=== PATIENT | female | born 1965 | race African-American/Black ===

== ENCOUNTER → 2017-10-21 | Outpatient (CLI) | payer OTHER, MEDICAID ==
[~2017-10-21] MED LIST: BAYER CHEWABLE81 MG PO; BYSTOLIC20 MG PO; DOXEPIN 10 MG C10 M1 PO; FLEXERIL PO; HYDROCODON-ACE1 EAC5 PO; KEPPRA 500 MG500 M1 PO; LISINOPRIL20 MG PO
--- NOTE | 2017-11-19 08:28 | PAINCON ---
[address] [address] PAIN MANAGEMENT CONSULTATION Name: RAMOSJOE Room: [facility]#: [id number] Admission: 10/21/17 Attend Phys: Chloé Swan MD Discharge: Date of : 67 Report #: [id number] THIS REPORT FOR: //name// CC: Kareem Swan DATE OF SERVICE: 10/30/2017 CHIEF COMPLAINT: "Aching and shooting pain down in my leg, since 2007." FOLLOWUP HISTORY: The patient is a 52-year-old female who has been referred to the pain clinic for evaluation. The patient states that she has had some problems with her leg since 2007. 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 It was noted that she had some swelling in her knee. She was later evaluated and found to have infection in her knee. She was treated for cellulitis. This involves her left leg. First noted in June 2008. Since that time, she has had pain and discomfort and problems with the leg. She has had cellulitis on a number of occasions. She finds that medications are difficult to tolerate. She does note some increased sensitivity in her left leg. She has difficulty with light touch as well as traditional irritation of her leg. She feels frustrated. She describes her pain as a 10/10. She has used Richmond 10/325 and Flexeril 10 mg t.i.d. She describes her discomfort as continuous, steady, constant, burning, shooting, aching, throbbing, sharp, stabbing and tender. At this juncture, there is no significant change in the hair pattern of the left versus the right. The has very little hair on her leg. It is not sure if she notices a significant change in color one side versus the other, but has noted on occasions what feels like some swelling involving the left foot and ankle area. She finds that light touch is uncomfortable and would often sleep without covers/blankets on her leg. It is irritated by the light pressure. The patient has been walking with a limp because of the pain and discomfort. ALLERGIES: SULFA. CURRENT MEDICATIONS: Lisinopril 20 mg daily, Mary aspirin 81 mg, Bystolic 10 mg, Keppra 1000 mg t.i.d., Richmond 10/325 mg 4-5 times daily, and Flexeril 10 mg 1 to 3 tablets daily. PAST MEDICAL HISTORY: Hypertension, seizure activity, and chronic regional pain syndrome involving the left leg. PAST SURGICAL HISTORY: Hysterectomy, tubes have been tight bilateral tubal ligation, tonsillectomy, and knee surgery on the left x 2. FAMILY HISTORY: Mother with diabetes, heart disease[place] [address] PAIN MANAGEMENT CONSULTATION Name: JOE BEASLEY Domo Room: [facility]#: [id number] Admission: 10/21/17 Attend Phys: Chloé Swan MD Discharge: Date of : 67 Report #: [id number] Father had heart attack. Mother is alive. Father is . REVIEW OF SYSTEMS: Questionnaire 14 points indicate decreased appetite, fatigue, weakness, wears glasses, convulsion/seizures, head injury, memory loss, confusion, depression, insomnia, excessive thirst, heat intolerance, and slow to heal. PHYSICAL EXAMINATION: GENERAL: The patient is a well-developed black female, appears her stated age. Alert and oriented x 3. Affect appear normal. Speech is fluent. HEENT: Normocephalic, atraumatic. Extraocular eye muscles intact. Hearing normal. Sclerae nonicteric. No nasal congestion. Moist buccal membranes. NECK: Clear to auscultation. No bruits or adenopathy. EXTREMITIES: Upper muscle strength is judged to be 5/5. Deep tendon reflexes are +2 or +1 for the biceps bilaterally. Difficult to appreciate, triceps and brachioradialis. Admissions Advisor strength 5/5. Sensation within normal limits. ABDOMEN: Nontender. MUSCULOSKELETAL: Normal, without lordosis, scoliosis, or kyphosis. Low back pain and discomfort in the left sciatic outflow tract. Right sciatic outflow tract unremarkable. The patient complains of pain and discomfort to light touch in the anterior portion of her leg and down into the mid calf. She notes some discomfort in the posterior L5-S1 distribution of her left leg. Complains of some stabbing sensation in the dorsum and lateral portion of her foot. Forward bending to 70 degrees. Left and right lateral bending lumbar extension were not very problematic. The patient complains of pain and discomfort with dorsiflexion of her foot. No significant swelling as compared to the contralateral side is noted. No significant color change as compared to the contralateral side is noted. No change in sweating left versus right is noted. The patient does complain of hyperesthesia on the left side as well as allodynia. Walks with an antalgic gait. ASSESSMENT: 1. Complex regional pain syndrome involving the left lower extremity. 2. Essential hypertension. 3. History of convulsions. 4. History of cellulitis in the lower extremity. RECOMMENDATIONS: We discussed treatment options with the patient. We explained the phenomena of chronic regional pain syndrome and its modalities as well as the pathophysiology in layman's terms. We have explained to the patient that sometimes these pain syndromes are maintained by sympathetic mechanism. Sometime resetting the sympathetic nervous system using a lumbar sympathetic block could be efficacious. As we discussed the options, which included lumbar sympathetic block as well as an epidural injection. The patient declined that option [place] [address] PAIN MANAGEMENT CONSULTATION Name: RAMOSJOE [facility] [id number] Admission: 10/21/17 Attend Phys: Chloé Swan MD Discharge: Date of : 67 Report #: [id number] explained that this could be helpful with pain since that pain that she is experiencing. At this juncture, she still declined the injection. We will give her the opportunity to think about this. If she chooses and returns, we could pursue it and note its efficacy. We would like to thank you for letting us participate in her care. We hope she continues to improve. <ELECTRONICALLY SIGNED> By: Chloé Swan MD 11/19/17 0828 [id number]. Edgardo Swan MD /nt
== END ==
LOC: M.PC 05:22
DX: G90.522 Complex regional pain syndrome I of left lower limb (principal); I10 Essential (primary) hypertension; Z90.710 Acquired absence of both cervix and uterus; Z98.890 Other specified postprocedural states

== ENCOUNTER → 2018-05-14 | Outpatient (CLI) | payer OTHER, MEDICAID ==
--- NOTE | 2018-05-22 17:38 | PAINCON ---
[facility] [address] [place] [address] PAIN MANAGEMENT CONSULTATION Name: JOE BEASLEY Room: [facility]#: [id number] Admission: 05/14/18 Attend Phys: Chloé Swan MD Discharge: Date of : 67 Report #: [id number] THIS REPORT FOR: //name// CC: Kareem Swan DATE OF SERVICE: 05/14/2018 FOLLOWUP HISTORY: The patient is a 53-year-old black female who has been followed in the pain clinic. She has pain and discomfort involving her low back area. She has had some problems with her lower extremities. She has been suffering from chronic pain. It involves cellulitis in her lower extremities. She states that the cellulitis waxes and wanes. At this juncture, it has returned. It involves both of her feet. They are quite tender to touch. The patient notes some swelling in this area. She has been placed on antibiotics. Feels states her feet continue to feel quite painful. She has been using hydrocodone 10 mg b.i.d. as well as Flexeril. Over the last month, she has noticed that the pain started and still has remained problematic. She has had this problem since 2007. She is still remains quite frustrated. Unable to be gainfully employed because of this. Still finds that light touch is uncomfortable. Sleep without covers over her legs. Irritated by light pressure. The patient continues to walk with limp and a very antalgic gait. ALLERGIES: SULFA. CURRENT MEDICATIONS: Lisinopril 20 mg, Mary Aspirin 81 mg, Bystolic 10 mg, Keppra 1000 mg t.i.d., Boaz 10/325 q.4-5h. times daily and Flexeril 10 mg 1 p.o. t.i.d. The patient medicines used in the past, Elavil caused bad dreams elevated heart rate. The patient states that she would like to use Cymbalta, but her insurance company would not pay for. Lyrica did not provide significant benefit per her report. PAIN CLINIC ASSESSMENT: 1. The patient is not to being treated for osteoarthritis or rheumatoid arthritis. 2. Height 5 feet 5 inches, weight 136 pounds, BMI is 22.8. 3. Vital signs: Blood pressure 127/78, heart rate 94, respiratory rate 16, room air saturation is 96, respiratory rate 16, temperature 98.2. 4. Pain scale 10/10. 5. Fall risk. The patient has not fallen in the last 3 months. 6. Blood thinner. The patient is not on a blood thinning medication. 7. Hypertension. The patient is not being treated for hypertension. 8. Opioid therapy. The patient is receiving opioid therapy. 9. [place] [address] PAIN MANAGEMENT CONSULTATION Name: JOE BEASLEY Domo Room: [facility]#: [id number] Admission: 05/14/18 Attend Phys: Chloé Swan MD Discharge: Date of : 67 Report #: [id number] 10. Functional assessment tool. 11. Recreational drug use. The patient denies use of recreational drugs. 12. Tobacco: The patient does smoke. 13. Alcohol: The patient denies use of alcoholic beverages. PHYSICAL EXAMINATION: GENERAL: The patient is a well-developed, well-nourished black female. Appears her stated age. She is alert and oriented x 3. Her affect appears appropriate. Speech is fluent. HEENT: Normocephalic, atraumatic. Extraocular eye muscles intact. Sclerae nonicteric. Mucous membranes are moist. LUNGS: Clear to auscultation. NECK: Without adenopathy or bruits. Upper extremity muscle strength is judged to be 5/5 for the major muscle groups. ABDOMEN: Nontender. MUSCULOSKELETAL: Without scoliosis, kyphosis or lordosis. The patient does walk with a forward lean. Walks with a very antalgic gait from side to side. There is swelling in the lower extremity. There is some discoloration of her feet. She has on flip flops use. Complains of some discomfort in the L4-L5 distribution down her leg. Positive straight leg raising, left. The patient does have hyperesthesia on the left side as well as allodynia. ASSESSMENT: 1. Complex regional pain syndrome involving the lower extremity. 2. Assist control hypertension. 3. History of convulsions/grand mal seizures. 2. History of cellulitis of lower extremity with recurrence at this juncture. RECOMMENDATIONS: We discussed treatment options with the patient. At this juncture, we will continue with her current medical regimen. A script for hydrocodone 10/325 one p.o. b.i.d. has been written. The patient will try doxepin 10 mg at bedtime. Hopefully, this would be helpful with sleep as well as help with the pain without the side effects of Elavil, which caused elevated heart rate and nightmares. <ELECTRONICALLY SIGNED> By: Chloé Swan MD 05/22/18 1738 [id number]. Edgardo Swan MD /nt
== END ==
LOC: M.PC 04:56
DX: G90.529 Complex regional pain syndrome I of unspecified lower limb (principal); I10 Essential (primary) hypertension

== ENCOUNTER 2019-01-05 09:52 | Inpatient (IN) | payer OTHER, MEDICAID ==
[~2019-01-05] VITALS: Ht 167.6 cm; Wt 67.9 kg
--- NOTE | ~2019-01-05 | CON ---
[address] [address] CONSULTATION Name: JOE BEASLEY Room: [address] IN .R.#: [id number] Admission: 01/05/19 Attend Phys: Jonathan Serrano MD Discharge: Date of : 67 Report #: [id number] THIS REPORT FOR: //name// CC: Jonathan Curry MD DICTATED BY: Treva Lee [facility] DATE OF SERVICE: 01/06/2019 Please note at the time of this dictation, the patient was seen and physically examined by myself. REASON FOR CONSULTATION: Elevated LFTs. HISTORY OF PRESENT ILLNESS: This is a 53-year-old female who presented to the Emergency Room with increasing rash over her lower extremities over the last couple of days. She has had it before, but it has not been this severe. She denies any nausea, vomiting, abdominal pain at this time. She states her bowels move at least once a week. She denies any bright red blood or any melena. She states she had a colonoscopy somewhere in the city a couple of years ago. She cannot recall who or where it was done. She did have her gallbladder out many years ago and was related to stones. The patient does admit to smoking marijuana; however, on her drug test, it was negative for THC, but positive for PCP and opioids. She is not complaining of any specific joint discomfort, but more itching of her lower extremity. ALLERGIES: SULFA. MEDICATIONS: From home is Flexeril, Keppra, Bystolic, ____ and Zestril. PAST MEDICAL HISTORY: Hypertension, neuropathy, seizures. PAST SURGICAL HISTORY: Cholecystectomy. FAMILY HISTORY: Mother, rheumatoid arthritis. SOCIAL HISTORY: She does admit to recreational drug use, marijuana. Denies any IV drug use or any snorting of any kind. Alcohol on special occasions. She does smoke a pack per day. REVIEW OF SYSTEMS: Twelve-point review of systems is essentially negative except what is mentioned in the HPI. PHYSICAL EXAMINATION: [place] [address] CONSULTATION Name: JOE BEASLEY Room: [address]#: [id number] Admission: 01/05/19 Attend Phys: Jonathan Serrano MD Discharge: Date of : 67 Report #: [id number] VITAL SIGNS: Temperature 36.9, pulse 71, respirations 15, blood pressure 145/87. HEART: Regular rate and rhythm. LUNGS: Diminished, but clear. ABDOMEN: Soft, positive bowel sounds in all 4 quadrants with no masses or tenderness noted. SKIN: Blanching purpuritic rash of her extremities, biopsy site noted. LABORATORY DATA: Hemoglobin on admission was 11.6. She is 10.2. White count is 7.9, platelets 116. PT is 11.2, INR 1.1, GFR is 91. Her ESR was 53, CRP was 116. D-dimer elevated at 17.95. CK 1123. Total bilirubin 0.8, alkaline phosphatase 107, ALT 247, AST is 273. The patient tested positive for PCP and opioids. DIAGNOSTIC STUDIES: CT of the abdomen and pelvis showed mild intrahepatic bile duct dilatation and the gallbladder is absent. IMPRESSION: 1. Elevated ALT and AST. 2. Thrombocytopenia. 3. Anemia. 4. History of drug abuse, opioids, THC and PCP. 5. Rash purpuritic. 6. Family history, mother with rheumatoid arthritis. PLAN: 1. Ultrasound of the abdomen. 2. Acute hepatitis panel and AMA with VINCENT pending. 3. Further recommendations to be made once the labs have been noted as well as the ultrasound. Thank you for allowing us to participate in this patient's care. Please do not hesitate to call with any questions in regard to this consult. By: 1001 [id number] Pantoja MD /nt
[2019-01-05 09:59] VITALS: BP 117/74
[2019-01-05 10:44] LABS: HEMATOCRIT 34.8 % (37.0-47.0); HEMOGLOBIN 11.6 gm/dL (12.0-15.0); MCH 30.1 pg (26.0-34.0); MCHC 33.2 g/dL (28.0-37.0); MCV 90.6 fL (80.0-100.0); MPV 10.7 fl. (7.2-11.1); NUCLEATED RBCS 0 /100WBC; PLATELET COUNT* 160 thou/uL (150-400); RBC 3.85 mil/uL (4.20-5.00); RDW-CV 15.1 % (10.5-14.5); WBC 9.6 thou/uL (4.0-11.0)
[2019-01-05 11:07] LABS: ANION GAP 11 mmol/L (7-16); BUN 11 mg/dL (7-18); CALCIUM 8.9 mg/dL (8.5-10.1); CHLORIDE 99 mmol/L (98-107); CO2 29 mmol/L (21-32); GLUCOSE 108 mg/dL (70-99); SODIUM 139 mmol/L (136-145); TROPONIN-I LEVEL <0.06 ng/mL (<0.06)
[2019-01-05 11:14] LABS: ALBUMIN 3.1 g/dL (3.4-5.0); ALKALINE PHOSPHATASE 107 U/L (46-116); NT-PRO BRAIN NAT PEPTIDE 68 pg/mL (<300); SGOT 273 U/L (15-37); SGPT 247 U/L (30-65); TOTAL BILIRUBIN 0.8 mg/dL (<0.1-1.0); TOTAL PROTEIN 7.6 g/dL (6.4-8.2)
[2019-01-05 11:20] LABS: ABSOLUTE BASOPHILS 0.1 thou/uL (0.0-0.2); ABSOLUTE LYMPHOCYTES 1.2 thou/uL (0.8-5.3); ABSOLUTE NEUTROPHILS 7.4 thou/uL (1.6-8.1); ATYPICAL LYMPHS 1 %; GIANT PLATELETS RARE; PLATELET ESTIMATE ADEQUATE
[2019-01-05 11:23] LABS: APTT 28.6 Seconds (25.0-31.3); INR 1.1; PROTIME 11.2 Seconds (9.20-11.50)
--- NOTE | 2019-01-05 14:53 | EKG ---
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
[2019-01-05 15:36] LABS: URINE BILIRUBIN NEGATIVE (Negative); URINE BLOOD 1+ (Negative); URINE CLARITY CLEAR; URINE COLOR YELLOW; URINE GLUCOSE-RANDOM NEGATIVE (Negative); URINE KETONES NEGATIVE (Negative); URINE LEUKOCYTES-REFLEX NEGATIVE (Negative); URINE PROTEIN TRACE (Negative); URINE SPECIFIC GRAVITY 1.025 (1.005-1.030)
[2019-01-05 15:37] LABS: URINE NITRITE-REFLEX POSITIVE (Negative)
[2019-01-05 15:43] LABS: HYALINE CASTS 0-3 Few /LPF (None Seen); SQUAMOUS >10 Many /LPF (0-3)
[2019-01-05 15:44] LABS: BACTERIA-REFLEX >30 Many /HPF (None Seen); MUCUS None Seen strn/LPF (None Seen); URINE WBC-REFLEX 6-15 Few /HPF (0-5)
[2019-01-05 15:45] LABS: CRYSTALS None Seen /LPF (None Seen); URINE RBC 0-2 Rare /HPF (0-2)
[2019-01-05 15:48] LABS: AMP/METHAMP Negative (Negative); BARBITURATES Negative (Negative); BENZODIAZEPINES Negative (Negative); COCAINE Negative (Negative); METHADONE Negative (Negative); OPIATES POSITIVE (Negative); PCP POSITIVE (Negative); THC Negative (Negative)
[2019-01-05 17:00] VITALS: BP 110/62
--- NOTE | 2019-01-05 18:56 | NUR ---
LOLAJT RESTING IN BED,. RUDOLPH HAS DESCRIBED VISITING A FRIEND IN [place] FROM 12/25 - 12/29 WHERE SHE WAS INVLOVED IN UNPROTECTED SEX AND NONDISCLOSED DRUG USAGE. PATIENT DENIES ANY KNOWLEDEG OF PCP USAGE BUT ADMITS TO MARIJUANA USE. SHE APPEARED SHOCKED TO FIND THAT SHE WAS POSITIVE FOR PCP. SHE RECENTLY BEGAN UTILIZING KEFLEX FOR TREATMENT OF LOWER EXTREMITY CELLULITIS. SHE DESCRIEBD BEGINNING TO FEEL BAD ON 0N SATURDAY 12/30 WHEN SHE WAS VERY HOT AND UNABEL TO COOL OFF.
[2019-01-05 19:10] VITALS: BP 105/63
--- NOTE | 2019-01-05 23:25 | NUR ---
INIITAL ASSESSMENT COMPLETED CHARTED. VSS. PT INITIALLY DENIES PAIN,THEN ASKED FOR PAIN MEDICINE. PRN FENTANYL GIVEN WITH GOOD RESULTS. TRACING SR ON MONITOR. PT DENIES ANY FURTHER NEEDS AT THIS TIME. HOURLY ROUNDING IN PLACE FOR PT SAFETY. CLWR.
[2019-01-06] VITALS: BP 107/72
[2019-01-06 03:06] LABS: COMPLEMENT-C4 34 mg/dL (14-44)
[2019-01-06 04:00] VITALS: BP 126/74
[2019-01-06 05:01] LABS: ABSOLUTE LYMPHOCYTES 0.7 thou/uL (0.8-5.3); ABSOLUTE MONOCYTES 0.3 thou/uL (0.0-1.2); ABSOLUTE NEUTROPHILS 6.9 thou/uL (1.6-8.1); BASOPHILS 0.3 %; HEMATOCRIT 30.7 % (37.0-47.0); HEMOGLOBIN 10.2 gm/dL (12.0-15.0); LYMPHOCYTES 9.1 %; MCH 30.1 pg (26.0-34.0); MCHC 33.2 g/dL (28.0-37.0); MCV 90.9 fL (80.0-100.0); MONOCYTES 3.5 %; MPV 11.2 fl. (7.2-11.1); NUCLEATED RBCS 0 /100WBC; PLATELET COUNT* 116 thou/uL (150-400); POLYS 87.1 %; RBC 3.38 mil/uL (4.20-5.00); RDW-CV 14.6 % (10.5-14.5); WBC 7.9 thou/uL (4.0-11.0)
[2019-01-06 05:05] LABS: CALCIUM 8.2 mg/dL (8.5-10.1); CREATININE 0.8 mg/dL (0.6-1.3)
[2019-01-06 08:55] VITALS: BP 145/87
--- NOTE | 2019-01-06 09:04 | NUR ---
PATIENT CARE ASSUMED AT 0700. VASCULAR ON FLOOR TO COMPLETE PUNCH SKIN BIOPSY ON PATIENT'S RASH. INFORMED CONSENT OBTAINED. BIOPSY COMPLETED TO RIGHT MENDEZ AREA WITH NO COMPLICATIONS. 4X4 WITH TEGADERM IN PLACE, INTACT. PATIENT DENIES ANY PAIN. PATIENT ORDERED TO HAVE ABDOMINAL US THIS AM FOR ELEVATED LFTS. PATIENT FOUND TO BE EATING UPON ENTERING ROOM. PATIENT EDUCATED ABOUT PROCEDURE AND THE NEED TO BE NPO. PATIENT STATED SHE DOES NOT WANT TO DO PROCEDURE AND IS GOING HOME TODAY "NO MATTER WHAT". AWAITING PHYSICIAN ROUNDING. DENIES FURTHER NEEDS AT THIS TIME.
--- NOTE | 2019-01-06 09:24 | NUR ---
HEAD BONE GRINDER IN TO SEE PATIENT. AFTER VISIT, HEAD BONE GRINDER TOLD NURSING STAFF THAT PATIENT WAS WILLING TO COMPLETE ABDOMINAL US. UPON ENTERING ROOM, PATIENT STATED WE ARE NOT BEING CLEAR WITH HER ABOUT NPO AND TESTING. PATIENT'S DAUGHTER AT BEDSIDE. AFTER DISCUSSION WITH DAUGHTER, PATIENT RELUCTANTLY WILLING TO DO US. PATIENT NOW NPO, FOOD AND WATER REMOVED FROM ROOM.
--- NOTE | 2019-01-06 11:00 | NUR ---
REPORT GIVEN TO DAVID RAMIREZ AT 1100.
[2019-01-06 12:00] VITALS: BP 141/81
--- NOTE | 2019-01-06 12:58 | NUR ---
ASSUMED CARE OF PT AT APPROX 1030. PT ALERT, ORIENTED AND ALL VSS. AGREE WITH PRIOR NURSE ASSESSMENT. PT C/O LEFT LEG PAIN- MEDICATED PER EMAR. RIGHT LEG BX SITE WITH CLEAN CAUZE AND TEGADERM. EDUCATED ON SAFETY AND PLAN OF CARE. PLEASE SEE ASSESSMENT FOR ADDITIONAL INFORMATION. WILL CONT TO MONITOR
--- NOTE | 2019-01-06 13:44 | NUR ---
ATTEMPTED TO MEET [facility] PT. SHE WAS SLEEPING. FAMILY IN ROOM. DISCUSSED WITH NURSE. PT ANXIOUS TO LEAVE HOSPITAL PER NURSING. WILL FOLLOW
[2019-01-06 16:00] VITALS: BP 109/65
[2019-01-06 19:15] VITALS: BP 125/79
[2019-01-07] VITALS: BP 133/85
--- NOTE | 2019-01-07 02:35 | NUR ---
INITAL ASSESSMENT COMPLETED CHARTED. PT C/O PAIN IN BILATERAL LEGS. PT REPORTS THIS PAIN IS CHRONIC. PRN PAIN MEDS GIVEN PER EMAR. PT TRACING SR ON MONITOR. VSS. NO FURTHER NEEDS NOTED. HOURLY ROUNDING IN PLACE. CLWR.
[2019-01-07 04:00] VITALS: BP 145/78
[2019-01-07 05:19] LABS: HEMATOCRIT 30.2 % (37.0-47.0); HEMOGLOBIN 9.8 gm/dL (12.0-15.0); MCH 29.9 pg (26.0-34.0); MCHC 32.6 g/dL (28.0-37.0); MCV 91.7 fL (80.0-100.0); MPV 11.3 fl. (7.2-11.1); RBC 3.3 mil/uL (4.20-5.00); RDW-CV 14.5 % (10.5-14.5); WBC 16.9 thou/uL (4.0-11.0)
[2019-01-07 05:41] LABS: ALBUMIN 2.6 g/dL (3.4-5.0); CALCIUM 8.4 mg/dL (8.5-10.1); CREATININE 0.8 mg/dL (0.6-1.3); MAGNESIUM 1.6 mg/dL (1.8-2.4); POTASSIUM 3.3 mmol/L (3.5-5.1); TOTAL BILIRUBIN 0.3 mg/dL (<0.1-1.0); TOTAL PROTEIN 6.7 g/dL (6.4-8.2)
[2019-01-07 07:30] VITALS: BP 163/93
[2019-01-07 08:10] LABS: HIV-1/HIV-2 ANTIBODY Non Reactive (Non Reactive)
[2019-01-07 08:28] VITALS: BP 163/93
[2019-01-07 10:06] LABS: HEPATITIS B SURFACE AG Positive (Negative)
[2019-01-07] MEDS ORDERED: MACROBID 100 M100 M2 PO (10:20)
[2019-01-07] MEDS ORDERED: PREDNISONE 10 M10 MG PO (10:20)
[2019-01-07 11:08] LABS: ANA INTERPRETATION Negative (Negative); ANTI-DNA SCREEN 2 IU/mL (0-9)
--- NOTE | 2019-01-07 11:13 | NUR ---
PT SIGNED PAPERWORK AND LEFT AMA. SHE REFUSED TO WAIT FOR FOLLOW UP CONSULTANTS OR DISCHARHE PAPERWORK. IV REMOVED BY THIS NURSE.
--- NOTE | 2019-01-07 11:26 | CON ---
[address] [address] CONSULTATION Name: JOE BEASLEY Room: [address] IN M.R.#: [id number] Admission: 01/05/19 Attend Phys: Jonathan Serrano MD Discharge: Date of : 67 Report #: [id number] THIS REPORT FOR: //name// CC: Jonathan Serna [facility] DATE OF SERVICE: 01/06/2019 INFECTIOUS DISEASE CONSULTATION ATTENDING PHYSICIAN: Jonathan Serrano M.D. REASON FOR EVALUATION: Painful generalized skin eruption with associated hepatitis. HISTORY OF PRESENT ILLNESS: Chart reviewed, the patient examined. This is a 53-year-old, with history of seizures, for which she takes levetiracetam, who has history of recurrent lower extremity skin and soft tissue infection with cellulitis. Per family, had developed over the course of just hours to less than a day prior to her admission, painful eruption, primarily below the knee bilaterally. This was not typical of her cellulitis and was a more maculopapular in appearance. She did have associated swelling. There were other patchy sites, including her upper extremity and over her left buttock. She currently was not feeling well per family. It is unclear if she had any fevers or chills. No gastrointestinal-related complaints nor did she complain of any pulmonary-related complaints. Evaluation noted elevated inflammatory markers, including CRP of 116 and sed rate of 53. Her lactic acid was 1.6. In addition to that, her liver functions were elevated in the 200s, specifically hepatic transaminases. Due to a concern about infectious etiology, she was empirically started on ceftriaxone. Additional studies showed no evidence of pneumonitis or pulmonary embolus. Urinalysis had moderate pyuria with 6-15 white cells and some associated bacteria. Drug screen was positive for opiates and PCP and blood cultures are sterile thus far. She is not encephalopathic. She did have a tissue biopsy done, pending those results. On questioning, she denies any particular exposure history. She is disabled. 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 She did have fairly recent travel to [place], again without evident exposure out there. ALLERGIES: ALLERGIES LISTED TO SULFA. MEDICATIONS: Include doxepin, hydrocodone, cyclobenzaprine, levetiracetam, metoprolol, aspirin, lisinopril, methylprednisolone, enoxaparin, ceftriaxone and pantoprazole. PAST MEDICAL HISTORY: History of seizure disorder, peripheral [place] [address] CONSULTATION Name: RAMOSJOE Domo Room: [address]#: [id number] Admission: 01/05/19 Attend Phys: Jonathan Serrano MD Discharge: Date of : 67 Report #: [id number] SOCIAL HISTORY: Occasional ethanol, smokes a pack a day and does use illicit drugs. FAMILY HISTORY: Noncontributory. REVIEW OF SYSTEMS: Otherwise unremarkable 10-point review of systems, with the exception of the above. PHYSICAL EXAMINATION: GENERAL: She appears somewhat chronically ill, undernourished. She is alert, cooperative and pleasant. She is in jbss-vi-psanfzzj distress. VITAL SIGNS: Temperature 98, pulse 100, respirations 15 and blood pressure 141/81. SKIN: Warm, dry. No rashes. HEENT: Normocephalic. Extraocular muscles intact. Oropharynx with teeth in reasonable repair. NECK: Supple. LUNGS: Diminished breath sounds. HEART: Irregular, borderline tachycardic. I do not appreciate a murmur. ABDOMEN: Soft, nontender and nondistended. EXTREMITIES: Bilateral lower extremities have maculopapular-type eruption. It is tender to touch at places, more extensive below the knees. It does extend along the entire length of the left lower extremity. There is a site of previous biopsy earlier today with dressing. Distal extremities are warm. I do not appreciate any bullous lesions. There are no ulcers at this point. GENITOURINARY: Deferred. RECTAL: Deferred. LABORATORY DATA: Abdominal ultrasound without significant abnormality. Blood cultures sterile thus far. Most recent CBC: White count of 7.9, H and H 10.2 and 30.7 and platelets of 116,000. Electrolytes: Sodium 143, potassium 4.0, chloride 105, bicarbonate is 27, anion gap of 11 and BUN and creatinine 9 and 0.8. VINCENT is pending. Urine drug screen noted positive for phencyclidine and opiates. Urinalysis with 6-15 white cells, greater than [address] of the chest, some scarring in the lung bases. CT of the pelvis, mild intrahepatic ductal dilatation. No evidence of DVT. Electrolytes: Sodium 139, potassium 3.0, chloride 99, bicarbonate is 29, anion gap of 11, BUN and creatinine 11 and 1.0. AST of 273, ALT of 247, total bilirubin of 0.8 and estimated GFR of 71. Albumin 3.1. Total protein 7.6. ASSESSMENT AND PLAN: Inflammatory eruption, appears to be related to some systemic illness. I do not think this is primarily cellulitic, although she has a history and she confirms this skin rash is different than usual. She does have a significant amount of pain. May well be some sort of vasculitis, perhaps a leukocytoclastic vasculitis or this is perhaps adverse drug effect related or [facility] [address] [place] [address] CONSULTATION Name: RAMOSJOE Room: [address] IN M.R.#: [id number] Admission: 01/05/19 Attend Phys: Jonathan Serrano MD Discharge: Date of : 67 Report #: [id number] cannot exclude a viral etiology. I agree with suppressive therapy with corticosteroids. We will, at this point, continue the ceftriaxone. She may well have a complicated urinary tract infection. We will await the path results. We will monitor expectantly. Given the lack of exposure history, I do not favor doing a sensitive serology, with exception of perhaps syphilis. We will await hepatitis studies as well. <ELECTRONICALLY SIGNED> By: Mir Chi MD 01/07/19 1126 1549 1055Jojoan Chi MD /nt
--- NOTE | 2019-01-07 12:36 | NUR ---
PT LEFT PRIOR TO BEING SEEN BY CM
--- NOTE | 2019-01-08 12:05 | PATH ---
[facility] [address] [place] [address] PATHOLOGY RPT PROCEDURE Name: JOE BEASLEY Room: [address] IN M.R.#: [id number] Admission: 01/05/19 Date of : 67 Discharge: 01/07/19 Report #: [id number] Path Case #: [id number] [facility] Accession Number: [id number] . 01 Material submitted: . calf - R MEDIAL CALF. Modifiers: right, medial . 01 Clinical history: . Pruritic rash . 02 Diagnosis: Skin, right medial calf, biopsy: - Leukocytoclastic vasculitis. (SAS/db; 01/07/2019) LBQ/01/07/2019 . 02 Electronically signed: . Dari Leggett MD, Pathologist NPI- [id number] . 01 Gross description: . The specimen is received in formalin, labeled "Aziza Alfonso medial calf". Received is an ellipse of light brown, grossly remarkable skin measuring 1.7 x 0.6 x 0.3 cm in greatest dimensions. The surgical margin is inked. The specimen is sectioned into five pieces and entirely submitted in cassettes A1 and A2, with the tips placed in cassette A2. (CAA; 01/06/2019) QAC/QAC . 02 Microscopic: . Situated around the small vessels of the capillary-venular vascular plexus, there is an infiltrate of neutrophils. Neutrophils undergo degeneration of nuclei (leukocytoclasia). There are perivascular deposits of fibrin. Extravasated erythrocytes are present around vessels and between collagen bundles. Scattered eosinophils are also identified. . 02 Pathologist provided ICD-10: L95.8 . 02 CPT . 009888 Specimen Comment: A courtesy copy of this report has been sent to Specimen Comment: [phone], , . Specimen Comment: Report sent to ,DR AMOS / DR BANKS Performed at: [address] [facility], [place] [id number] MD Blake Alfredo MD Phone: [phone] [place] [address] PATHOLOGY RPT PROCEDURE Name: JOE BEASLEY Room: [address] IN .R.#: [id number] Admission: 01/05/19 Date of : 67 Discharge: 01/07/19 Report #: [id number] Path Case #: [id number] Performed at: 02 [facility] [place] [address] [place], [place] [id number] MD Dari Leggett MD Phone: [phone]
--- NOTE | 2019-01-11 11:53 | CON ---
[facility] [address] [place] [address] CONSULTATION Name: RONALDBRADENJOE Room: [address] IN M.R.#: [id number] Admission: 01/05/19 Attend Phys: Jonathan Serrano MD Discharge: 01/07/19 Date of : 67 Report #: [id number] THIS REPORT FOR: //name// CC: Jonathan Serna [facility] DATE OF SERVICE: 01/06/2019 REFERRING PHYSICIAN: Jonathan Serrano M.D. REASON FOR CONSULTATION: Purpuric rash, concern for vasculitis, evaluate for skin biopsy. HISTORY OF PRESENT ILLNESS: The patient is a very pleasant 53-year-old -Malagasy female who has had increasing rash over the past week. She denies itching or pain with the rash. She has had a previous spider bite of her right calf, but this is now well healed. She denies fevers or chills. The rash has now spread from her bilateral lower extremities to her bilateral arms. She has not been on any new medications or any new soaps or detergents. REVIEW OF SYSTEMS: A 12-point review of systems reviewed and negative as per HPI. ALLERGIES: INCLUDE SULFA. MEDICATIONS AT HOME: Include doxepin, hydrocodone, lisinopril, aspirin, Bystolic, Keppra and Flexeril. PAST MEDICAL HISTORY: Significant for hypertension, hyperlipidemia, neuropathy, seizures. SOCIAL HISTORY: The patient smokes tobacco as well as marijuana. Denies other drug use. Occasionally drinks alcohol. PHYSICAL EXAMINATION: GENERAL: The patient in no acute distress. She is alert and oriented. VITAL SIGNS: Afebrile, vital signs stable. HEENT: Normocephalic and atraumatic. NECK: Supple. HEART: Regular. LUNGS: Clear. ABDOMEN: Soft, nontender, nondistended. EXTREMITIES: She has a purpuritic rash of her bilateral calves extending on to her medial thighs. She also has the same rash on her bilateral upper extremities, although less extensive. NEUROLOGIC: [place] [address] CONSULTATION Name: JOE BEASLEY Room: [address]#: [id number] Admission: 01/05/19 Attend Phys: Jonathan Serrano MD Discharge: 01/07/19 Date of : 67 Report #: [id number] IMPRESSION: Purpuritic rash of unclear etiology. I agree with steroid therapy. We will obtain a skin biopsy to further delineate potential causes. Thank you very much for involving us in the care of this very pleasant patient. Please feel free to call me with any questions or concerns with assessment and plan. <ELECTRONICALLY SIGNED> By: João Mabry DO 01/11/19 1153 [id number] Chopra MD /wes
== END 2019-01-07 11:15 | disposition left against medical advice (07) | DRG 813 ==
LOC: M.ERS 09:52 → M.2W 13:53 → M.TBA-ER 13:53 → M.2W 15:17
PROVIDERS: Internal Medicine; Nurse Practitioner Adult Health; Physician Assistant; Specialist; ADMIT Internal Medicine
PROC: 0JBN0ZX Excision of Right Lower Leg Subcutaneous Tissue and Fascia, Open Approach, Diagnostic (ICD-10-PCS; principal; 2019-01-06)
DX: D69.2 Other nonthrombocytopenic purpura (principal); L03.90 Cellulitis, unspecified; N39.0 Urinary tract infection, site not specified; M62.82 Rhabdomyolysis; I77.6 Arteritis, unspecified; I10 Essential (primary) hypertension; G62.9 Polyneuropathy, unspecified; F16.10 Hallucinogen abuse, uncomplicated; D69.6 Thrombocytopenia, unspecified; D64.9 Anemia, unspecified; G40.909 Epilepsy, unspecified, not intractable, without status epilepticus; F17.210 Nicotine dependence, cigarettes, uncomplicated; M60.9 Myositis, unspecified; Z53.21 Procedure and treatment not carried out due to patient leaving prior to being seen by health care provider; K59.00 Constipation, unspecified; Z79.82 Long term (current) use of aspirin; Z79.899 Other long term (current) drug therapy; Z88.2 Allergy status to sulfonamides; Z90.49 Acquired absence of other specified parts of digestive tract; Z82.61 Family history of arthritis